=== PATIENT | male | born 1960 | race Caucasian/White ===

== ENCOUNTER 2017-09-01 06:34 | Day surgery (SDC) | payer OTHER ==
[2017-09-01] MEDS ORDERED: DEXAMETHASONE SOD PHOSPHATE/PF 10 MG/ML SDV ONE (08:00)
[2017-09-01] MEDS ORDERED: ROPIVACAINE HCL 0.5% 30ML VIAL ONE (08:01)
[2017-09-01] MEDS ORDERED: MIDAZOLAM HCL 2 MG/2 ML SINGLE DOSE VIAL ONE (08:01)
[2017-09-01] MEDS ORDERED: EPINEPHrine 1:1,000 1 MG/1 ML - 30ML VIAL (INJECTION) ONE (08:02)
[2017-09-01] MEDS ORDERED: ceFAZolin SODIUM 1 GM VIAL ONE (09:40)
[2017-09-01] MEDS ORDERED: PROPOFOL 20 ML ONE ×3 (09:40→10:19)
[2017-09-01] MEDS ORDERED: ONDANSETRON 4 MG/2 ML VIAL ONE (09:45)
[2017-09-01] MEDS ORDERED: DEXAMETHASONE SOD PHOSPHATE 4 MG/1 ML VIAL ONE (09:45)
[2017-09-01] MEDS ORDERED: BUPIVACAINE HCL/PF 2.5 MG/ML - 30 ML VIAL IJ ONE (10:30)
[2017-09-01] MEDS ORDERED: BUPIVACAINE HCL/PF 0.25% (2.5MG/ML) 10 ML VIAL IJ ONE (10:47)
[2017-09-01] MEDS ORDERED: ONDANSETRON 4 MG/2 ML VIAL IVPUSH PRN (11:01)
[2017-09-01] MEDS ORDERED: oxyCODONE HCL 5 MG TABLET PO PRN (11:01)
[2017-09-01] MEDS ORDERED: LACTATED RINGERS SOLUTION 1,000 ML IV SCH (11:15)
[2017-09-01] MEDS ORDERED: oxyCODONE HCL 5 MG TABLET ONE (12:11)
[2017-09-01 12:49] VITALS: TEMP 97.7
[2017-09-01 13:25] VITALS: BP 130/80; PULSE 80
--- NOTE | 2017-09-03 23:11 | OP ---
DATE OF OPERATION: 09/01/2017 SURGEON: Arron Bassett M.D. HOMICIDE [facility] SERGEANT: Dharmesh Pichardo PREOPERATIVE DIAGNOSIS: 1. Right shoulder rotator cuff tear. 2. Right shoulder long head biceps tendon tear. 3. Right shoulder adhesive capsulitis. 4. Right shoulder impingement syndrome. 5. Right shoulder acromioclavicular joint disease. 6. Right shoulder superior labrum, anterior to posterior with synovitis. POSTOPERATIVE DIAGNOSIS: 1. Right shoulder rotator cuff tear. 2. Right shoulder long head biceps tendon tear. 3. Right shoulder adhesive capsulitis. 4. Right shoulder impingement syndrome. 5. Right shoulder acromioclavicular joint disease. 6. Right shoulder superior labrum, anterior to posterior with synovitis. PROCEDURE: 1. Right shoulder arthroscopy with arthroscopic rotator cuff repair, CPT code 14429. 2. Right shoulder arthroscopy with arthroscopic biceps tenodesis, CPT code 98040. 3. Right shoulder arthroscopy with lysis of adhesions, CPT code 74154. 4. Right shoulder arthroscopy with subacromial decompression, CPT code 05025. 5. Right shoulder arthroscopy resection of clavicle acromioclavicular joint, CPT code 34007. 6. Right shoulder arthroscopy with debridement, CPT code 36059. FINDINGS: 1. Full thickness rotator cuff tear with extensive tearing along the supraspinatus and infraspinatus in retraction to the glenoid. 2. Superior labrum, anterior to posterior type 4. 3. Anterior grade 2 and 3 cartilage injury glenoid humerus. 4. Posterior with adhesions and thickened scar tissue. 6. Type 2 to 3 acromion anterolateral spurring. 7. Inferior superior joint disease. REPAIR TYPE: Due to extensive tearing along the biceps tendon, a biceps tenodesis was performed, securing it at the biceps groove and using the biceps tendon along the greater tuberosity to serve as a graft for the extensive rotator cuff tearing. This was secured with 2 anchors. A side to side rotator cuff tear repair was performed along the supraspinatus and infraspinatus, and the remaining portion was secured to the biceps tendon into the bleeding bone, which was created along the greater tuberosity. Four anchors were placed across the biceps tendon incorporating the rotator cuff as well, as well as 2 separate anchors into the biceps tendon. PROCEDURE: Informed consent was obtained. The patient was taken to the operating room where the upper extremity was prepped and draped in a sterile fashion. The shoulder was manipulated for a full range of motion. Posterior incision portal was made and directed to glenohumeral joint. Under direct visualization, an anterior incision and portal was made. Extensive synovitis, as well as chondral injuries throughout the glenohumeral joint were dbrided and removed. Any identified labral injuries, including superior labral tear, anterior and posterior, and anterior labrum torn portions were removed as well. Rotator cuff was visualized and noted to have full-thickness tear. The edges were debrided. Posterior incision portal was redirected to subacromial space where a lateral incision portal was made. Excessive and thickened scar tissue noted throughout the subacromial space, including bursal and scar tissue, were removed. The type 2 acromion was converted into a flattened type 1 using a jono for subacromial decompression. Distal inferior spur at the distal clavicle was also dbrided with the use of accessory portal in the AC joint. The edges of the rotator cuff were identified. Sutures were placed into the rotator cuff and secured using anchors throughout the greater tuberosity. Prior to securing, a bleeding bed was made using a small jono, creating a bleeding surface of the rotator cuff insertion. The shoulder was then drained. A single suture as placed on all portals and a sterile dressing was placed. The patient was transferred to the recovery room without complication. ARRON BASSETT M.D. [id number]
--- NOTE | 2017-09-06 16:14 | PATH ---
Surgical Pathology Report Patient Name: SANDRA HERRING Med. Rec. #: [id number] /Age/Gender: 1960 (Age: 57) / M Account: [id number] Location: [facility] [place] [facility] Taken: 09/01/2017 Received: 09/01/2017 Reported: 09/06/2017 Physicians: Arron Lew M.D. Specimen(s) Received RIGHT SHOULDER SHAVINGS Clinical History Right shoulder rotator cuff tear Final Diagnosis SHOULDER, RIGHT, ARTHROSCOPIC SHAVINGS: FIBROSYNOVIAL TISSUE, CARTILAGE, BONE AND SKELETAL MUSCLE. Electronically Signed Cydney Feliz M.D. Gross Description Received in formalin, labeled "right shoulder shavings," is a 4.2 x 3.6 x 0.3 cm. aggregate of galeana-yellow soft tissue fragments. A cash applications representative portion is submitted in one cassette. /09/04/201709/04/2017
== END 2017-09-01 13:10 | disposition home or self-care (01) ==
LOC: FASU 06:34
PROVIDERS: ATTEND Orthopaedic Surgery
PROC: 0LS14ZZ Reposition Right Shoulder Tendon, Percutaneous Endoscopic Approach (ICD-10-PCS; 2017-09-01)
PROC: 0RNJ4ZZ Release Right Shoulder Joint, Percutaneous Endoscopic Approach (ICD-10-PCS; 2017-09-01)
PROC: 0PB94ZZ Excision of Right Clavicle, Percutaneous Endoscopic Approach (ICD-10-PCS; 2017-09-01)
PROC: 0RBJ4ZZ Excision of Right Shoulder Joint, Percutaneous Endoscopic Approach (ICD-10-PCS; 2017-09-01)
PROC: 0LB14ZZ Excision of Right Shoulder Tendon, Percutaneous Endoscopic Approach (ICD-10-PCS; principal; 2017-09-01 09:00)
DX: M75.101 Unspecified rotator cuff tear or rupture of right shoulder, not specified as traumatic (principal); M66.821 Spontaneous rupture of other tendons, right upper arm; M75.01 Adhesive capsulitis of right shoulder; M75.41 Impingement syndrome of right shoulder; M19.011 Primary osteoarthritis, right shoulder; S43.431A Superior glenoid labrum lesion of right shoulder, initial encounter; X58.XXXA Exposure to other specified factors, initial encounter; Y93.9 Activity, unspecified; Y92.9 Unspecified place or not applicable; M65.811 Other synovitis and tenosynovitis, right shoulder
CPT/HCPCS: 88304-TC; 94760